=== PATIENT | female | born 1995 | race Asian ===

== ENCOUNTER 2021-04-02 09:49 | Emergency (ER) | payer OTHER ==
--- NOTE | 2021-04-02 11:08 | REP ---
INDICATION: CP COMPARISON: None. TECHNIQUE: PA and lateral. FINDINGS: The mediastinum and cardiac silhouette are normal. The lung hercules are clear and without acute consolidation, effusion, or pneumothorax. Scoliosis through the thoracolumbar spine noted. IMPRESSION: No acute cardiopulmonary process. <Electronically signed by Zaid Waldron > 04/02/21 [id number]
[2021-04-02] MEDS ORDERED: holter monitor (12:49)
[2021-04-02 13:30] VITALS: BP 120/78
--- NOTE | 2021-04-03 16:34 | ECGEPIP ---
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
== END 2021-04-02 13:53 | disposition home or self-care (01) ==
LOC: M ED 09:49 → EDBD 09:49 → M ED 13:53
DX: R00.2 Palpitations (principal)

== ENCOUNTER 2021-04-18 12:13 | Emergency (ER) | payer OTHER ==
[~2021-04-18] VITALS: Ht 162.6 cm; Wt 62.7 kg
[~2021-04-18 12:13] MED LIST: holter monitor
--- NOTE | 2021-04-18 15:53 | REP ---
INDICATION: chest pain, center, reproducible. COMPARISON: Comparison chest x-ray April 02, 2021. TECHNIQUE: Two views.. FINDINGS: The lungs are well inflated and free of infiltrate. The pleural angles are sharp. The heart size is normal. Pulmonary vasculature is not increased. There is a [id number] S-shaped thoracolumbar scoliotic curve again noted unchanged. No acute bony abnormality is seen.. IMPRESSION: Scoliosis. Otherwise negative chest x-ray.. <Electronically signed by Darrel Palencia > 04/18/21 [id number]
[2021-04-18 16:34] VITALS: BP 114/82
--- NOTE | 2021-04-18 21:32 | ECGEPIP ---
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
== END 2021-04-18 16:35 | disposition home or self-care (01) ==
LOC: M ED 12:13 → EDBD 12:13 → M ED 16:35
DX: R07.89 Other chest pain (principal)

== ENCOUNTER 2021-08-12 12:31 | Emergency (ER) | payer OTHER ==
[~2021-08-12] VITALS: Ht 162.6 cm; Wt 66.5 kg
[2021-08-12 12:32] VITALS: BP 133/81
--- OUTSIDE RECORDS SUMMARY | 2021-08-12 12:37 | CCD ---
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 [facility] (Karlee Gomes MD) Diastolic blood pressure 83 mm[Hg] 83 mm[Hg] [facility] (Karlee Gomes MD) Systolic blood pressure 115 mm[Hg] 115 mm[Hg] M [facility] (Karlee Gomes MD) Body temperature 97.7 [degF] 97.7 [degF] [facility] (Karlee Gomes MD) Body mass index (BMI) [Ratio] 24.3 kg/m2 24.3 k g/m2 [facility] (Karlee Gomes MD) Body weight 141.38 [lb_av] 141.38 [lb_av] [facility] (Karlee [facility] Oxygen saturation in Arterial blood by Pulse oximetry 98 % 98 % [facility] ([facility]) Systolic blood pressure 110 mm[Hg] 110 mm[Hg] [facility] ([facility]) Diastolic blood pressure 82 mm[Hg] 82 mm[Hg] [facility] ([facility]) Heart rate 77 /min 77 /min [facility] ([facility]) Body height 64 [in_i] 64 [in_i] [facility] ([facility]) 5'4" Body weight 138.00 [lb_av] 138.00 [lb_av] [facility] ([facility]) Body mass index (BMI) [Ratio] 23.7 kg/m2 23.7 k g/m2 [facility] ([facility]) Shorter body weight 120 [lb_av] 120 [lb_av] [facility] ([facility]) Body weight 62.597 kg 62.597 kg [facility] ([facility]) Body surface area Derived from formula 1.67 m2 1.67 m2 [facility] ([facility]) Systolic blood pressure 114 mm[Hg] 114 mm[Hg] [facility] ([facility]) Diastolic blood pressure 79 mm[Hg] 79 mm[Hg] [facility] ([facility]) Heart rate 88 /min 88 /min [facility] ([facility]) Body temperature 98.2 [degF] 98.2 [degF] [facility] ([facility]) Respiratory rate 14 /min 14 /min [facility] ( [facility]) Oxygen saturation in Arterial blood by Pulse oximetry 100 % 100 % [facility] ([facility]) Body weight 140.00 [lb_av] 140.00 [lb_av] [facility] ([facility]) Body weight 63.504 kg 63.504 kg [facility] ([facility]) Body height 64 [in_i] 64 [in_i] [facility] ([facility]) 5'4" Body mass index (BMI) [Ratio] 24.0 kg/m2 24.0 k g/m2 [facility] ([facility]) Body surface area Derived from formula 1.68 m2 1.68 m2 [facility] ([facility])
[2021-08-12] MEDS ORDERED: IRON325T9 PO (12:38)
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
== END 2021-08-12 13:51 | disposition left against medical advice (07) ==
LOC: M ED 12:31
DX: Z53.21 Procedure and treatment not carried out due to patient leaving prior to being seen by health care provider (principal)

== ENCOUNTER 2021-10-22 13:17 | Emergency (ER) | payer OTHER ==
[~2021-10-22] VITALS: Ht 162.6 cm; Wt 67.4 kg
[~2021-10-22 13:17] MED LIST changes: +IRON325T9 PO
[2021-10-22 13:18] VITALS: BP 108/72
[2021-10-22] MEDS ORDERED: NS 1,000 ML IV ONE (16:55)
[2021-10-22] MEDS ORDERED: ONDANSETRON 4MG/2ML VIAL IV ONE (16:55)
[2021-10-22 17:35] LABS: BASO % 0.3 % (0.0-1.0); EOS # 0.4 10^3/uL (0.0-0.5); EOS % 3.1 % (0.0-3.0); HEMATOCRIT 38.7 % (36.0-47.0); HEMOGLOBIN 12.4 g/dl (12.0-15.5); LYMPH # 3.2 10^3/uL (1.5-5.0); LYMPH % 27.7 % (24.0-44.0); MEAN CORPUSCULAR HEMOGLOBIN 20.9 pg (27.0-33.0); MEAN CORPUSCULAR VOLUME 65.4 fl (80.0-96.0); MONO # 0.7 10^3/uL (0.0-0.8); MONO % 5.8 % (2.0-8.0); NEUTROPHILS # 7.2 10^3/uL (1.5-8.5); NEUTROPHILS % 62.8 % (36.0-66.0); PLATELET COUNT, AUTOMATED 256 10^3/uL (150-450); RED BLOOD COUNT 5.92 10^6/uL (4.00-5.40); WHITE BLOOD COUNT 11.5 10^3/uL (4.0-10.0)
[2021-10-22 18:01] LABS: BLOOD UREA NITROGEN 10 MG/DL (7-18); CALCIUM LEVEL 8.9 MG/DL (8.5-10.1); CARBON DIOXIDE LEVEL 24 MEQ/L (21-32); CHLORIDE LEVEL 105 MEQ/L (98-107); CREATININE FOR GFR 0.62 MG/DL (0.55-1.30); FREE T4 1.16 NG/DL (0.76-1.46); GLOMERULAR FILTRATION RATE > 60.0 (>60); GLUCOSE, FASTING 86 MG/DL (70-100); HCG, SERUM QUANTITATIVE 61855 MIU/ML; POTASSIUM SERUM 5.1 MEQ/L (3.5-5.1); SODIUM LEVEL 135 MEQ/L (136-145)
[2021-10-22] MEDS ORDERED: UNIS25TA3 PO (18:21)
[2021-10-22] MEDS ORDERED: ONDA4TAB6 PO (18:22)
[2021-10-22] MEDS ORDERED: PYRI25TA2 PO (18:22)
== END 2021-10-22 18:56 | disposition home or self-care (01) ==
LOC: M ED 13:17
DX: O21.8 Other vomiting complicating pregnancy (principal); Z3A.01 Less than 8 weeks gestation of pregnancy; Z79.899 Other long term (current) drug therapy
CPT/HCPCS: 80048; 84439; 84443; 84702; 85025; 96361; 96374; 99283; J2405